=== PATIENT | female | born 2000 | race Caucasian/White ===

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

== ENCOUNTER 2022-10-19 07:26 | Emergency (ER) | payer OTHER, SELFPAY ==
[2022-10-19 07:49] LABS: Urine Blood 3+ (Negative); Urine Glucose Negative (Negative); Urine Protein 1+ (Negative); Urine Specific Gravity 1.015 (1.005-1.030)
[2022-10-19] MEDS ORDERED: IBUPROFEN 200 MG TAB PO ONE (08:16)
[2022-10-19 08:18] LABS: Urine Bacteria None Seen /HPF (<20); Urine RBC >50 /HPF (None Seen)
[2022-10-19 08:21] LABS: Urine Specific Gravity/Preg 1.015 (1.005-1.030)
--- NOTE | 2022-10-19 08:32 | ER ---
Nurse's Notes [facility] Name: Clotilde Topete Age: 21 yrs Sex: Female : 2000 Arrival Date: 10/19/2022 Time: 07:29 Bed 4 Private MD: Diagnosis: UTI/ Urinary tract infection, site not specified Presentation: 10/19 07:36 Chief complaint: Patient states: burning with urination since yesterday and blood in aa5 urine today. Pt also reports lower abd cramping. Onset of symptoms was October 19, 2022. 07:36 Acuity: HENRY 3 aa5 07:36 Method Of Arrival: Ambulatory aa5 07:36 Coronavirus screen: At this time, the client does not indicate any symptoms associated aa5 with coronavirus-19. Ebola Screen: Patient denies travel to an Ebola-affected area in the 21 days before illness onset. Initial Sepsis Screen: Does the patient meet any 2 criteria? No. Patient's initial sepsis screen is negative. Does the patient have a suspected source of infection? No. Patient's initial sepsis screen is negative. Risk Assessment: Do you want to hurt yourself or someone else? Patient reports no desire to harm self or others. 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 - Social history:: Smoking status: Reported history of juuling and/or vaping. - Family history:: not pertinent. Screenin:00 Abuse screen:. iw Assessment: 09:00 Reassessment: Patient appears in no apparent distress at this time. Patient and/or iw family updated on plan of care and expected duration. Pain level reassessed. Patient is alert, oriented x 3, equal unlabored respirations, skin warm/dry/pink. Vital Signs: 07:36 BP 127 / 83; Pulse 78; Resp 18 S; Temp 98.3(TE); Pulse Ox 100% on R/A; Weight 56.7 kg aa5 (R); Height 5 ft. 6 in. (167.64 cm) (R); 07:36 Body Mass Index 20.18 (56.70 kg, 167.64 cm) aa5 ED Course: 07:29 Patient arrived in ED. rg4 07:36 Triage completed. aa5 07:36 Arm band placed on. aa5 07:46 Kash Haynes MD is Attending Physician. rt 07:49 Bakari Bal, RN is Primary Nurse. bp 09:00 Patient has correct armband on for positive identification. iw 09:00 No provider procedures requiring assistance completed. Patient did not have IV access iw during this emergency room visit. Administered Medications: 08:10 Drug: Ibuprofen 600 mg Route: PO; bp Medication: 09:00 VIS not applicable for this client. iw Outcome: 08:31 Discharge ordered by MD. rt 09:00 Discharged to home ambulatory, with family. iw 09:00 Condition: good 09:00 Discharge instructions given to patient, Instructed on discharge instructions, follow up and referral plans. Demonstrated understanding of instructions, follow-up care, Prescriptions given X 1. 09:01 Patient left the ED. iw Signatures: Annabel Toro, RN RN iw Sarah Raymond, RN RN aa5 Daja Borrego rg4 Bakari Bal, RN RN bp Kash Haynes MD MD rt Corrections: (The following items were deleted from the chart) 07:37 07:36 LMP 10/14/2022 aa5 aa5
--- NOTE | 2022-10-19 08:32 | EDPHYS ---
Physician Documentation [facility] Name: Clotilde Topete Age: 21 yrs Sex: Female : 2000 Arrival Date: 10/19/2022 Time: 07:29 Bed 4 Private MD: ED Physician Kash Haynes HPI: 10/19 08:32 This 21 yrs old Female presents to ER via Ambulatory with complaints of Blood In Urine. rt 08:32 Patient presents to the ED with 3 days of dysuria, hematuria. She reports low back pain rt but denies flank pain. She reports some chills but denies fever. States that she was recently treated for bacterial vaginosis, states the symptoms have somewhat worsened. Denies other acute complaints at this time, symptoms are mild in severity, no other aggravating or elevating factors.. 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 - Social history:: Smoking status: Reported history of juuling and/or vaping. - Family history:: not pertinent. ROS: 08:32 Cardiovascular: Negative for chest pain, palpitations, and edema, Respiratory: Negative rt for shortness of breath, cough, wheezing, and pleuritic chest pain, Abdomen/GI: Negative for abdominal pain, nausea, vomiting, diarrhea, and constipation, MS/Extremity: Negative for injury and deformity, Skin: Negative for injury, rash, and discoloration, Neuro: Negative for headache, weakness, numbness, tingling, and seizure, Psych: Negative for depression, anxiety, suicide ideation, homicidal ideation, and hallucinations. 08:32 Constitutional: Positive for chills, Negative for fever. 08:32 : Positive for hematuria, burning with urination. Exam: 08:32 Constitutional: This is a well developed, well nourished patient who is awake, alert, rt and in no acute distress. Chest/axilla: Normal chest wall appearance and motion. Nontender with no deformity. No lesions are appreciated. Cardiovascular: Regular rate and rhythm with a normal S1 and S2. No gallops, murmurs, or rubs. Normal PMI, no JVD. No pulse deficits. Respiratory: Lungs have equal breath sounds bilaterally, clear to auscultation and percussion. No rales, rhonchi or wheezes noted. No increased work of breathing, no retractions or nasal flaring. Skin: Warm, dry with normal turgor. Normal color with no rashes, no lesions, and no evidence of cellulitis. MS/ Extremity: Pulses equal, no cyanosis. Neurovascular intact. Full, normal range of motion. Neuro: Awake and alert, GCS 15, oriented to person, place, time, and situation. Cranial nerves II-XII grossly intact. Motor strength 5/5 in all extremities. Sensory grossly intact. Cerebellar exam normal. Normal gait. Psych: Awake, alert, with orientation to person, place and time. Behavior, mood, and affect are within normal limits. 08:32 Abdomen/GI: Minimal suprapubic tenderness, no focal right lower quadrant tenderness, no rebound, guarding, distention. 08:32 Back: No costovertebral angle tenderness. Vital Signs: 07:36 BP 127 / 83; Pulse 78; Resp 18 S; Temp 98.3(TE); Pulse Ox 100% on R/A; Weight 56.7 kg aa5 (R); Height 5 ft. 6 in. (167.64 cm) (R); 07:36 Body Mass Index 20.18 (56.70 kg, 167.64 cm) aa5 MDM: 07:46 Patient medically screened. rt 08:32 Differential diagnosis: Kidney stone, pyelonephritis, UTI, ectopic . Data rt reviewed: vital signs, nurses notes, lab test result(s). Test considered but Not performed: CT: Symptoms are not consistent with kidney stone or pyelonephritis, no focal right lower quadrant tenderness, CT scan not indicated clinically.. Counseling: I had a detailed discussion with the patient and/or guardian regarding: the historical points, exam findings, and any diagnostic results supporting the discharge/admit diagnosis, lab results, the need for outpatient follow up, to return to the emergency department if symptoms worsen or persist or if there are any questions or concerns that arise at home. Response to treatment: the patient's symptoms have markedly improved after treatment. 10/19 07:49 Order name: Urine Dipstick-Ancillary; Complete Time: 07:51 EDMS 10/19 07:51 Order name: Urine --Ancillary (enter results) bd 10/19 07:51 Order name: Urine Microscopic Only rt 10/19 08:19 Order name: Urine Microscopic Only; Complete Time: 08:29 EDMS 10/19 08:22 Order name: Urine --Ancillary; Complete Time: 08:29 EDMS Administered Medications: 08:10 Drug: Ibuprofen 600 mg Route: PO; bp Disposition Summary: 10/19/22 08:31 Discharge Ordered Location: Home rt Problem: new rt Symptoms: have improved rt Condition: Stable rt Diagnosis - UTI/ Urinary tract infection, site not specified rt Followup: rt - With: Private Physician - When: 2 - 3 days - Reason: Discharge Instructions: - Discharge Summary Sheet rt - Urinary Tract Infection, Adult rt Forms: - Medication Reconciliation Form rt - Thank You Letter rt - Antibiotic Education rt - Prescription Opioid Use rt Prescriptions: - Macrobid 100 mg Oral Capsule - take 1 capsule by ORAL route every 12 hours for 7 days; 14 capsule; Refills: 0, rt Product Selection Permitted Signatures: Dispatcher [employer] Sarah Baptiste RN RN aa5 Bakari Bal RN RN bp Kash Haynes MD MD rt
[2022-10-19 09:08] VITALS: BP 127/83; TEMP 98.3; O2SAT 100
== END 2022-10-19 09:01 | disposition home or self-care (01) ==
LOC: ER 07:26
DX: N39.0 Urinary tract infection, site not specified (principal)
CPT/HCPCS: 81003; 81015; 81025; 87086; 87088; 99283